=== PATIENT | female | born 1940 | race Caucasian/White ===

== ENCOUNTER 2022-12-31 09:20 | Emergency (ER) | payer OTHER ==
[~2022-12-31] VITALS: Ht 160 cm; Wt 60.8 kg
[2022-12-31] MEDS ORDERED: CLONAZEPAM1 MG PO (09:44)
[2022-12-31] MEDS ORDERED: ATORVASTATIN CA40 MG PO (09:44)
[2022-12-31] MEDS ORDERED: GABAPENTIN300 M2 PO (09:45)
[2022-12-31] MEDS ORDERED: HYDROXYZINE PAM25 MG PO (09:45)
[2022-12-31] MEDS ORDERED: OXYC1TAB9 PO (09:46)
[2022-12-31] MEDS ORDERED: ST. JOSEPH ASPI81 M2 PO (09:46)
[2022-12-31] MEDS ORDERED: LOSARTAN POTASS50 MG PO (09:47)
[2022-12-31] MEDS ORDERED: JANUMET 50-1,01 EACH (09:48)
== END 2022-12-31 15:36 | disposition home or self-care (01) ==
LOC: ER 09:20
DX: M51.26 Other intervertebral disc displacement, lumbar region (principal); E11.9 Type 2 diabetes mellitus without complications; Z79.84 Long term (current) use of oral hypoglycemic drugs; M19.90 Unspecified osteoarthritis, unspecified site; I25.118 Atherosclerotic heart disease of native coronary artery with other forms of angina pectoris; F32.89 Other specified depressive episodes; Z20.822 Contact with and (suspected) exposure to COVID-19